=== PATIENT | female | born 1965 | race Caucasian/White ===

== ENCOUNTER 2017-06-30 23:33 | Emergency (ER) | payer MEDICAID, SELFPAY ==
[2017-06-30 23:34] VITALS: BP 124/67; PULSE 81; RESP 16; TEMP 36.8; O2SAT 97; BMI 27.1
--- NOTE | 2017-06-30 23:45 | EKG12_ITS ---
Test Reason : CP Blood Pressure : / mmHG Vent. Rate : 082 BPM Atrial Rate : 082 BPM P-R Int : 154 ms QRS Dur : 082 ms QT Int : 382 ms P-R-T Axes : 063 046 039 degrees QTc Int : 446 ms Normal sinus rhythm Normal ECG Confirmed by GARCIA DE LA TORRE MD ([id number]), department editor MELI MCCARTY ([id number]) on 07/04/2017 1:53:41 PM Referred By: ERIC Confirmed By:GARCIA DE LA TORRE MD
--- NOTE | 2017-06-30 23:45 | RAD_ITS ---
STUDY: X-RAY CHEST REASON FOR EXAM: Female, 52 years old. Chest pain TECHNIQUE: Frontal view COMPARISON: None. FINDINGS: The lungs are clear and expanded. There is no demonstrated pleural abnormality. Normal size heart. Normal mediastinum and janice. Normal visualized pulmonary arteries. Normal visualized aortic arch and descending thoracic aorta. Normal visualized thoracic spine. Normal visualized ribs, clavicles, and shoulders. There is no demonstrated abnormality of the visualized soft tissue structures of the upper abdomen. RAD/Chest 1 View (Portable) IMPRESSION: Normal x-ray examination of the chest. Electronically Signed: Valdo Solis MD at 0:08 EDT , Service support ,
[2017-06-30 23:53] VITALS: O2SAT 98
[2017-06-30] MEDS: 0.9% Normal Saline 1,000 ML 150 ML IV (23:58)
[2017-07-01 00:21] LABS: Absolute Lymphocyte Count 0.78 X10^3/ul (0.83-4.51); Absolute Neutrophil Count 6.8 X10^3/uL (2.0-7.7); Basophil# 0.01 X10^3/uL; Basophil% 0.1 % (0-1); Eosinophil# 0.06 X10^3/uL; Eosinophils% 0.7 % (0-5); Hematocrit 39.2 % (37-47); Hemoglobin 13.7 g/dl (12.0-15.0); Lymphocyte # 0.78 X10^3/ul (4.0); Lymphocyte % 9.3 % (19-41); Mean Corp Hgb Conc 34.9 g/gl (32-36); Mean Corpuscular Hgb 30.4 pg (27.0-32.0); Mean Corpuscular Volume 86.9 fL (81-99); Mean Platelet Vol. 11.3 fl (6.2-12.0); Monocyte# 0.74 X10^3/uL; Monocyte% 8.8 % (0-10); Neutrophil # 6.76 X10^3/uL (2.7-7.7); Neutrophil % 80.9 % (47-70); Platelet Count 176 K/mm3 (150-450); RBC Distribution Width CV 12.7 % (11.6-14.6); RBC Distribution Width SD 39.9 fl (35.1-43.9); Red Blood Count 4.51 M/mm3 (4.2-5.4); White Blood Count 8.4 K/mm3 (4.4-11.0)
[2017-07-01 00:29] LABS: POSITIVE COUNT NO; POSITIVE DIFFERENTIAL NO; POSITIVE MORPHOLOGY NO
[2017-07-01 00:32] LABS: AST(SGOT) 104 U/L (15-37); Alanine Aminotransfer ALT/SGPT 47 U/L (13-56); Albumin, Serum 3.9 g/dL (3.2-5.0); Alkaline Phosphatase 108 U/L (45-117); Anion Gap 8 (5-15); BUN 11 mg/dL (7-18); BUN/Creat Ratio 9.7 RATIO (10-20); Bilirubin, Direct 0.19 mg/dL (0.00-0.30); Calcium,Total 8.1 mg/dL (8.5-10.1); Chloride 109 mmol/L (98-107); Creatinine, Serum 1.13 mg/dL (0.55-1.02); EST Glomerular Filtration Rate 53 mL/min (>60); Est Glom Filt Rate - Afr Amer 65 mL/min (>60); Estimated Creatinine Clearance 45.01 ml/min; Globulin 3.4 g/dL (2.2-4.2); Glucose 154 mg/dL (74-106); Lipase 147 U/L (73-393); Potassium 3.6 mmol/L (3.5-5.1); Protein, Total 7.3 g/dL (6.4-8.2); Sodium Level 142 mmol/L (136-145)
--- NOTE | 2017-07-01 01:00 | ED.VISSUMM ---
- ER Visit Summary Date of Service: 07/01/17 Chief Complaint: Chest pain History of Present Illness: The patient is a 52 F who presents via EMS complaining of chest pain. Patient reports cold symptoms for the past 2 days with cough and congestion. She went to bed tonight and developed pain in the epigastrium that went into her back. She went to the bathroom and felt cold, clammy, sweaty, and vomited. Patient denies pain radiating up into the chest. She has no known coronary risk factors and no significant family history. She does have a family history of pancreatitis. Physical Examination: Vital signs are unremarkable. Patient sitting upright in bed no acute distress. Head neck examination is normal. Heart is regular rate and rhythm. Lung sounds are clear. Abdomen is soft with mild tenderness in epigastrium. She has hypoactive bowel sounds throughout. There is no guarding or rebound. Lower extremity examination was no calf tenderness or edema. She has strong distal pulses throughout. Test Results: Portable chest x-ray is unremarkable. EKG is sinus 82 with no sign of acute ischemia. CBC reveals normal overall white count with 80% neutrophil count is noted. Chemistry studies are significant for glucose of 154 and creatinine 1.13. LFTs and lipase are normal. Troponin is less than 0.02. Emergency Department Course and Treatment: Patient has a documented allergy to aspirin. She was given Zofran and fluids here. On repeat evaluation she has had no further symptoms or pain. At this time she is able tolerate p.o. without difficulty. I believe her symptoms are more gastric in nature as opposed to cardiac. Patient be discharged to home at this time. She is encouraged to return for any worsening symptoms or concerns. Treatment Plan: [] Disposition: Discharge Impression: 1. Epigastric pain and vomiting, improved 2. Vasovagal reaction This note was generated with [employer] dictation software. It may contain incorrect words, spelling, and punctuation that were not noted in review of the chart prior to signing ED Disposition - Plan for ED Patient: Chief Complaint: Chest Pain Referrals: Care Physician,No Primary [Primary Care Provider] -
--- NOTE | 2017-07-01 01:06 | ED.DEP ---
ED Disposition - Plan for ED Patient: Disposition: Home or Assisted Living Chief Complaint: Chest Pain Instructions: ED Epigastric Pain [facility], ED Near Syncope Vasovagal Referrals: Willis Orozco MD [STAFF PHYSICIAN] - 1-2 Weeks
[2017-07-01 01:17] VITALS: BP 122/72; PULSE 88; RESP 17; O2SAT 95
--- NOTE | 2017-07-01 01:17 | ED.RN ---
IV DC'ED, CATHETER INTACT, SMALL GAUZE DRESSING PLACED. DISCHARGE INSTRUCTIONS GIVEN TO AND REVIEWED WITH PATIENT, PATIENT DENIES QUESTIONS OR CONCERNS AND VOICES UNDERSTANDING OF DISCHARGE INSTRUCTIONS. PT AMBULATES OUT OF ROOM WITHOUT DIFFICULTY.
== END 2017-07-01 01:19 | disposition home or self-care (01) ==
PROVIDERS: Emergency Provider Emergency Medicine
DX: R10.13 Epigastric pain (principal); R11.10 Vomiting, unspecified; R55 Syncope and collapse
CPT/HCPCS: 71045; 80048; 80076; 83690; 84484; 85025; 93005; 96360; 99285; J7030; J2405

== ENCOUNTER 2017-08-06 00:28 | Emergency (ER) | payer MEDICAID, SELFPAY ==
[2017-08-06 00:29] VITALS: BP 153/83; PULSE 79; RESP 16; TEMP 36.5; O2SAT 97; BMI 26.4
--- NOTE | 2017-08-06 00:45 | ED.VISSUMM ---
- ER Visit Summary Date of Service: 08/06/17 Chief Complaint: Left arm pain and numbness History of Present Illness: The patient is a 52 F who complains of pain and numbness of the left upper extremity. She actually has symptoms in both hands but is worse on the left and she states that is what she wants to focus on tonight. Over the past 2 days she has had increased burning pain and numbness in the left hand and arm. She states this is the back and front of the hand and includes the thumb index long and ring fingers. She states the pain and numbness also involves her wrist and forearm up to proximal to the elbow. She states this is worse when she lays down and is relieved by standing up. She took Rowley without relief. She currently rates her pain as 10 out of 10. She denies any associated symptoms such as fevers chest pain shortness of breath. Of note she has seen [facility] for these symptoms and is scheduled for further outpatient testing. 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 Her compartments are soft there is no edema there is no rash Test Results: Not indicated Emergency Department Course and Treatment: Patient has a history of prior similar symptoms. The description of her pain does sound like neuropathic pain. The distribution does not fit specifically to radial ulnar median nerve distributions. I did advise that she should likely undergo further workup for neuropathy including possible studies such as EMG. She believes this is what she is scheduled for. I do feel she may benefit from anti-inflammatories. She was given a prescription for naproxen. She was advised to follow-up outpatient. She understands to return for new or worsening symptoms. She was discharged. Treatment Plan: [] Disposition: Discharge Impression: Left arm neuropathic pain This note was generated with [employer] dictation software. It may contain incorrect words, spelling, and punctuation that were not noted in review of the chart prior to signing ED Disposition - Plan for ED Patient: Chief Complaint: Other, Pain/Inj Referrals: Care Physician,No Primary [Primary Care Provider] -
--- NOTE | 2017-08-06 00:50 | ED.DCSUM_ITS ---
- ER Visit Summary Date of Service: 08/06/17 Chief Complaint: Left arm pain and numbness History of Present Illness: The patient is a 52 F who complains of pain and numbness of the left upper extremity. She actually has symptoms in both hands but is worse on the left and she states that is what she wants to focus on tonight. Over the past 2 days she has had increased burning pain and numbness in the left hand and arm. She states this is the back and front of the hand and includes the thumb index long and ring fingers. She states the pain and numbness also involves her wrist and forearm up to proximal to the elbow. She states this is worse when she lays down and is relieved by standing up. She took Indian without relief. She currently rates her pain as 10 out of 10. She denies any associated symptoms such as fevers chest pain shortness of breath. Of note she has seen [facility] for these symptoms and is scheduled for further outpatient testing. 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 Her compartments are soft there is no edema there is no rash Test Results: Not indicated Emergency Department Course and Treatment: Patient has a history of prior similar symptoms. The description of her pain does sound like neuropathic pain. The distribution does not fit specifically to radial ulnar median nerve distributions. I did advise that she should likely undergo further workup for neuropathy including possible studies such as EMG. She believes this is what she is scheduled for. I do feel she may benefit from anti-inflammatories. She was given a prescription for naproxen. She was advised to follow-up outpatient. She understands to return for new or worsening symptoms. She was discharged. Treatment Plan: [] Disposition: Discharge Impression: Left arm neuropathic pain This note was generated with OpenDrive dictation software. It may contain incorrect words, spelling, and punctuation that were not noted in review of the chart prior to signing ED Disposition - Plan for ED Patient: Chief Complaint: Other, Pain/Inj Referrals: Care Physician,No Primary [Primary Care Provider] -
--- NOTE | 2017-08-06 00:50 | ED.DEP ---
ED Disposition - Plan for ED Patient: Chief Complaint: Other, Pain/Inj Instructions: ED Neuropathy Peripheral Prescriptions: Naproxen [Naprosyn] 500 mg PO BID #20 tab Referrals: Care Physician,No Primary [Primary Care Provider] - Additional Instructions: Follow-up with your primary care physician and orthopedics.
[2017-08-06] MEDS: Naproxen 250 MG Tablet 500 MG PO (01:07)
== END 2017-08-06 01:09 | disposition home or self-care (01) ==
LOC: ED 00:59
PROVIDERS: Emergency Provider Emergency Medicine; Family Provider Family Medicine; PCP Family Medicine
DX: G56.92 Unspecified mononeuropathy of left upper limb (principal)
CPT/HCPCS: 99282

== ENCOUNTER → 2017-09-22 10:29 | Outpatient (CLI) | payer MEDICAID, SELFPAY ==
[2017-09-22 12:37] LABS: Anion Gap 9 (5-15); BUN 13 mg/dL (7-18); Calcium,Total 8.9 mg/dL (8.5-10.1); Chloride 105 mmol/L (98-107); Cholesterol 246 mg/dL (200); Creatinine, Serum 0.87 mg/dL (0.55-1.02); EST Glomerular Filtration Rate 72 mL/min (>60); Est Glom Filt Rate - Afr Amer 87 mL/min (>60); Glucose 83 mg/dL (74-106); High Density Lipoprotein 55 mg/dL; Potassium 4.1 mmol/L (3.5-5.1); Sodium Level 141 mmol/L (136-145); Triglycerides 195 mg/dL; Very Low Density Lipoprotein 39 mg/dL (5-40)
[2017-09-22 12:41] LABS: Vitamin D,25 Hydroxy 18.7 ng/mL (29.95-100.01)
== END ==
PROVIDERS: Family Provider Family Medicine; PCP Family Medicine; Visit Provider Family Medicine
DX: Z00.00 Encounter for general adult medical examination without abnormal findings (principal)
CPT/HCPCS: 36415; 80048; 80061; 82306

== ENCOUNTER → 2017-10-19 10:31 | Outpatient (CLI) | payer MEDICAID, SELFPAY ==
--- NOTE | 2017-10-19 10:34 | BI_ITS ---
MAMMOGRAPHY - BILATERAL SCREENING REASON FOR EXAM: Female, 52 years old. Routine annual screening examination. PERTINENT HISTORY: Non-contributory. TECHNIQUE: Digital bilateral breast grazyna (3D mammographic acquisition) in the CC and MLO projections. 2-D mediolateral oblique (MLO) and craniocaudad (CC) views of both breasts were obtained. CAD: Full Field Digital Mammography with Computer Added Detection was performed. COMPARISON: Comparison is made with prior outside examination dated April 11, 2016. FINDINGS: Breast Composition: The breasts are heterogeneously dense, which may obscure small masses. There are no dominant masses or suspicious calcifications. No other significant abnormalities are identified. There has been no significant change since the prior study. BI/SCREENING MAMM (CAD), BILAT IMPRESSION: Stable bilateral screening mammogram. Yearly follow-up mammogram recommended. (A) ASSESSMENT CATEGORY: BIRADS Category 1: Negative. A letter regarding these results will be sent to the patient by the facility within 30 days. Approximately 10% of breast cancers are not detected by mammography. A normal mammogram should not delay biopsy of a clinically suspicious abnormality. [id number] Electronically Signed: Hadley Munroe MD at 14:07 EDT Tel [phone], Service support ,
== END ==
PROVIDERS: Family Provider Family Medicine; PCP Family Medicine; Visit Provider Family Medicine
DX: Z00.00 Encounter for general adult medical examination without abnormal findings (principal); Z12.31 Encounter for screening mammogram for malignant neoplasm of breast
CPT/HCPCS: 77063; 77067

== ENCOUNTER → 2017-11-09 13:45 | Outpatient (CLI) | payer MEDICAID, SELFPAY | PROVIDERS: Family Provider Family Medicine; PCP Family Medicine; Visit Provider Family Medicine | DX: M75.51 Bursitis of right shoulder (principal) | CPT/HCPCS: 73030 ==

== ENCOUNTER → 2017-11-16 10:12 | Outpatient (CLI) | payer MEDICAID, SELFPAY | PROVIDERS: Family Provider Family Medicine; PCP Family Medicine; Visit Provider Family Medicine | DX: Z00.00 Encounter for general adult medical examination without abnormal findings (principal) | CPT/HCPCS: 77080 ==

== ENCOUNTER 2017-12-06 11:00 | Outpatient (RCR) | payer MEDICAID, SELFPAY ==
--- NOTE | 2017-11-13 09:24 | HP.PTEVAL_ITS ---
Patient's Visit Information BALJIT DIETZ is a 52 year old F referred to Physical Therapy by Willis Orozco with a diagnosis of R shoulder pain. Date of Evaluation: 11/13/17 Physical Therapist: DEBBI LimT, OC - Visit Plan Frequency: 3x /Week Duration: 4-6 Weeks Plan: 3x/week for 3-6 for: 1. c/s ret and ext program and monitor effects on R UE elevation, c/s ROM and shoulder pain. 2. Activity modification to R shoulder posturally, positionally. 3. RC and scap/postural strength per tolerance to r scap/c/s. 4. TENS and ice to R shoulder as needed. STM to R scap. - Subjective Subjective: Has had numbness in hands for long time years and then it went dormant. Last May, started working at [employer] and acitvated that sleeping dog. Arms and hands started going numb and went to orthopod. EMG showed mild to moderate cTS in R and none in L. Scheduled for an MRI for that. In the meantime saw Ernesto for R shoulder x ray due to pain adn hard time lifting it and showed calcification. Spasms and knots in scapular muscle. This has been going on for three weeks and had insidious onset. Was doing repetitious stuff at [employer] and reaching up quite a bit. May have done it reaching at that time. This was unreported. 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 Now hard to do hair and any twisting of shoulder. Sleep is OK for the most part. Not still working as she cannot find a job. Doing hair and getting dressed at home sometimes bothers R shoulder. Staffing partners wont place her until testing is done for shoulder. [facility] was looking into her neck but due to [facility], they cannot provide services, patient will wait for the to trasfer her to someone else. CT braces have helped arm numbness. - Pain R scapular/shoulder. Pain Intensity (Out of 10): 5 Pain Intensity Range: 0, 6 - Objective Posture is forward head and slightly protracted scapula. reflexes 2/3 bis and tri B. Sensation WNL UE except R 2/3 digit. c/s AROM ext 45 degrees with mild discomfort, rotation painful at end range R rot but 65 degrees B, SB WFL. Max tenderness to entire R upper quarter neck and scap and into dletoid and R supraspinatus area. Strength R UE weaker than L. wrist flexion 3 r and 4- L. Thumb 3+ B, wrist ext 3+ R and 4- L. Elbow flexion adn ext 3+ R and 4- L. Shoulder flexion painful and 3+ R and no pain 4-L. repeated ret improves mption R shoulder, repeated ext improves movement R shouldr, flexion:NE more soreness laterally. + R HK, + R neer, - ext rotation lag test. AROM R UE is painful to elevate and IR at end ranges but full aROM. + c/s comp test R scapular pain. - Goals Goal 1:: Full aROM R UE without pain Goal Time Frame: 4-6 Weeks Goal 2:: Pt get dressed adn do hair without noticing R shoulder. Goal Time Frame: 4-6 Weeks Goal 3:: pt feel like she can return to working without interruption of R shoulder. Goal Time Frame: 4-6 Weeks Goal 4:: Pt feel 75% back to normal R shoulder. Goal Time Frame: 4-6 Weeks - Rehabilitation Potential Physical Therapy Diagnosis: R shoulder pain c/s radiculopathy vs. shoulder impingement/bursitis. Many cmorbidities including CTS confounding situation. Rehabilitation Potential: Fair - Anticipated Interventions Patient/Client Instruction: Educate patient on: Condition, Plan of Care For the Purpose of:: To decrease pain, To decrease swelling/inflammation Therapeutic Exercise to Include: Strength training, Passive ROM, Active ROM, Scapular Strength/Stabilization For the Purpose of:: To decrease pain, To decrease swelling/inflammation, To increase ROM, To improve nutrient delivery to tissue, To improve ability of physical actions for home/community/work/leisure Manual Therapy Techniques to Include: Soft tissue mobilization For the Purpose of:: To decrease pain, To improve nutrient delivery to tissue TENS: Yes Cryotherapy (ice pack, ice massage): Yes For the Purpose of:: To decrease pain, To decrease swelling/inflammation Thank you for the opportunity to evaluate your patient. For Medicare and Medicare HMO plans, please review the plan of care and approve it. It will need to be FAXED BACK to us at [phone] for Medicare purposes. Please let me know if there are questions or concerns regarding this plan of care. Physician Signature: Date:
--- NOTE | 2017-12-06 11:55 | HP.PTDCSUM ---
HP - PT D/C Summary It has been my pleasure to treat BALJIT DIETZ under orders from Willis Orozco, for the diagnosis of R shoulder pain for a total of 10 visit(s). Discharge Date: Please see the following information for a summary of their discharge status. - Subjective Subjective: Daily 09/26 pain R lateral shoulder and shoulder blade. No f/u wioth doctor scheduled but will schedule it after today. Sleep is not great pillow helps with pain but hard to sleep that way. Activities at home are modified due to pain. Has to bend over to wash hair. Stilla voids reaching into cupboards. - Pain R scapular/shoulder. Pain Intensity (Out of 10): 6 - Overall Improvement % Improvement: 0 - Objective Objective/Function: AROM very limited in R elevation to 80 degrees before pain is very limiting. ext rotation and IR hurt at end range. Strength is 4- ext rotation and 4/5 int rotation, 3/5 elevation with pain laterally at shoulder. Very tender to palpation over supraspinatus and A-C joint. c/s AROM WFL with only slight discomfort end of B rotation, - c/s compression test. OVERALL NOT IMPROVING DESPITE WORKING HARD. - Goals Goal 1:: Full aROM R UE without pain Goal Progress: Not Progressing Goal 2:: Pt get dressed adn do hair without noticing R shoulder. Goal Progress: Not Progressing Goal 3:: pt feel like she can return to working without interruption of R shoulder. Goal Progress: Not Progressing Goal 4:: Pt feel 75% back to normal R shoulder. Goal Progress: Not Progressing - Plan Plan: d/c RECOMMEND BACK TO DOCTOR FOR NEXT STEP. - D/C Information Discharge Comments: rECOMMEND PATIENT RETURN TO DOCTOR FOR NEXT MEDICALS TEP SHE IS NOT IMPROVING WITH THIS TRATMENT. PT TO CALL TO SCHEDULE. If there are questions or concerns regarding this patient's physical therapy, please feel free to call me at [phone]. Thank you for the referral of this patient. Sincerely, Rip Marie, DPT, OC
== END 2017-12-06 19:00 | disposition home or self-care (01) ==
LOC: PT 11:00
PROVIDERS: Family Provider Family Medicine; PCP Family Medicine; Visit Provider Family Medicine
DX: M25.511 Pain in right shoulder (principal)
CPT/HCPCS: 97014; 97110; 97140; 97162; 97530; G0283

== ENCOUNTER → 2017-12-23 07:53 | Outpatient (CLI) | payer MEDICAID, SELFPAY ==
--- NOTE | 2017-12-23 08:30 | MRI_ITS ---
STUDY: MRI CERVICAL SPINE WITHOUT CONTRAST REASON FOR EXAM: Female, 52 years old. Left arm numbness and tingling. TECHNIQUE: Standardized fat and water weighted pulse sequences were obtained in the sagittal and axial planes. COMPARISON: None FINDINGS: Normal foramen magnum and brainstem-cervical cord junction. Normal craniovertebral junction. Normal anterior atlantoaxial articulation. Normal odontoid process. Normal cervical lordosis. Normal vertebral bodies and posterior osseous elements. C2-3: Normal endplates. Normal disc height, signal and morphology. Normal central canal and intervertebral neural foramina. C3-4: Normal endplates. Normal disc height, signal and morphology. Normal central canal and intervertebral neural foramina. Mild facet spurring. C4-5: Normal endplates. Normal disc height, signal and morphology. Normal central canal and intervertebral neural foramina. Mild facet spurring. C5-6: Disc bulge. Anterior spurring. Facet spurring. Normal central canal and intervertebral neural foramina. C6-7: Disc bulge with central left paracentral disc protrusion narrowing the left lateral recess, series 5 images 9/30 and 10/30. Normal central canal and intervertebral neural foramina. C7-T1: Normal endplates. Normal disc height, signal and morphology. Normal central canal and intervertebral neural foramina. Normal cervical cord. Normal visualized soft tissue structures. MRI/Spine Cervical (Routine) IMPRESSION: Disc herniation at C6-7 centrally and toward the left. Electronically Signed: Quinton Turk MD at 15:02 EDT , Service support ,
--- NOTE | 2017-12-23 09:15 | MRI_ITS ---
STUDY: MRI RIGHT SHOULDER REASON FOR EXAM: Female, 52 years old. Right shoulder pain status post injury TECHNIQUE: Standardized fat and water weighted pulse sequences were obtained in all 3 orthogonal planes. COMPARISON: None. FINDINGS: There is tendon thickening with intratendinous decreased signal on all pulse sequences of the supraspinatus tendon consistent with a calcific tendinitis. Normal infraspinatus tendon. Normal subscapularis tendon. Normal teres minor tendon. Normal supraspinatus muscle. Normal infraspinatus muscle. Normal subscapularis muscle. Normal teres minor muscle. There is a small volume joint effusion of the glenohumeral joint. Normal humeral head and visualized proximal humerus. Normal biceps labral complex. Normal intracapsular long biceps tendon. Tear of the superior labrum adjacent to the biceps anchor, series 4 image 13/20. Normal capsulo- ligamentous complex. Normal rotator interval. There is mild osteoarthritis of the acromioclavicular articulation. There is a Type II morphology (curved) acromion, with a neutral orientation. There is no subacromial-subdeltoid bursal fluid. Normal visualized coracohumeral and coracoacromial ligaments. Normal quadrilateral space. Normal axillary space. Normal deltoid muscle. Normal trapezius muscle. MRI/Upper Ext Joint Only(Routine) IMPRESSION: Calcific tendinopathy of the supraspinatus. No full-thickness rotator cuff tear. SLAP lesion and tear of the superior labrum. Electronically Signed: Quinton Turk MD at 15:06 EDT , Service support ,
== END ==
PROVIDERS: Family Provider Family Medicine; PCP Family Medicine; Referring Provider Family Medicine; Visit Provider Family Medicine
DX: S43.431A Superior glenoid labrum lesion of right shoulder, initial encounter (principal); X58.XXXA Exposure to other specified factors, initial encounter; M75.31 Calcific tendinitis of right shoulder; M50.222 Other cervical disc displacement at C5-C6 level; R20.2 Paresthesia of skin
CPT/HCPCS: 72141; 73221

== ENCOUNTER 2018-01-31 17:00 | Outpatient (RCR) | payer MEDICAID, SELFPAY ==
--- NOTE | 2018-01-12 13:03 | HP.PTEVAL_ITS ---
Patient's Visit Information BALJIT DIETZ is a 52 year old F referred to Physical Therapy by Maddi Dunn DO with a diagnosis of RIGHT SUPRASPINATOUS CALCIFICATION,SLAP TEAR. Date of Evaluation: 01/12/18 Physical Therapist: Robert Crystal, PT, - Visit Plan Frequency: 2x /Week Duration: 4 Weeks Plan: DISCUSSED WITH PATIENT IONTO WITH ACETIC ACID IS NOT COVERED UNDER INSURANCE. PATIENT HAS SLAP TEAR MRI AND C6-7 HNP PLAN FOR CONSULT FOR CERVICAL Jan 16. PT INTERVENTION MAINLY US/ESTIM FOR JUAN CARRENO HAS CONSUTLT - Subjective Subjective: This 52 y/o female presents to physical therapy with right shoulder calcific tendonitis ,SLAP tear. Patient has had prior PT which made symptoms worse with exercies. Patient had MRI of left shoulder showed calcific tendonitis SLAP tear. Patient also had MRI cervical showed cervical HNP C6-7. Plan to see surgeon Jan 16 for consult for cervical spine. Dr Reyes wants cervical consult first and wait for right shoulder which may need arthroscopic left shoulder. Right shoulder pain located grossly anterior shoulder and blade. Symptoms worse with activity above 90 degrees ,self hygine,ADLS' and housework chores.Symptoms better with ice. Patient c/o parathesia hands. Patient symptoms affects sleeping. Pain in right shoulder and radicular symptoms left UE affect QOL and ADL'S. SOCIAL: single. VOCATION: unemployed - Pain Right Shoulder Pain Intensity (Out of 10): 7 Pain Intensity Range: 10 - Objective POSTURE: mild foward posture. PALAPTION: tender AC. NEURO: c/o parathesia /tingling hand,reflexes C5-6-7 2/3. AROM: shoulder flexion 90 degrees ,abduction 70 degrres pain with OP pain. PROM: shoulder flexion 120 pain,abd 110 pain ,ER 90 degrees pain. FUNCTIONAL : test unable. MMT: RRTC 3+/5 pain ,deltoid 3/5 pain - Special Tests R Shoulder Drop Sign - IS Test: Positive R Shoulder Empty Can - SS: Positive R Shoulder Belly Press - SupScap: Positive R Shoulder Neer - Impingement: Positive R Shoulder Ambriz Dontrell - Impingement: Positive R Shoulder Speeds Test - Labrum/Biceps: Positive R Shoulder O'Briens - SLAP/A-C: Positive R Shoulder Shrug Sign - OA/Adhesive Capsulitis: Positive - Goals Goal 1:: Independant with HEP Goal Time Frame: 2-4 Weeks Goal 2:: Independant with posture for ADL'S Goal Time Frame: 2-4 Weeks Goal 3:: Decrease left shoulder pain by 30% or greater to improve function Goal Time Frame: 2-4 Weeks Goal 4:: Patient to inprove AROM shoulder flexion/abd 100 degrees or greater to improve function. Goal Time Frame: 2-4 Weeks Goal 5:: Patient to improve ability with ADL'S and housework chores with less pain to improve QOL Goal Time Frame: 2-4 Weeks - Rehabilitation Potential Physical Therapy Diagnosis: This patient has right shoulder pain with pain with ROM ,weakness with pain impairs ability to muse arm with ADL'S. Patient had MRI shoed slap tear ,DR recommend surgery but recommeded to see cervical surgeon due to MRI showed HNP C6-7. Rehabilitation Potential: Fair - Anticipated Interventions Patient/Client Instruction: Educate patient on: Condition, Plan of Care For the Purpose of:: To decrease pain, To increase ROM, To improve muscle performance and motor function, To improve ability to perform ADL's, To increase tolerance to activity/condition/position, To improve performance and indep endence with ADL's, To improve ability of physical actions for home/community/work/leisure, To improve health of tissue, To decrease soft tissue restriction, To increase flexibility/ROM, To improve health and function, To improve ability to perform tasks related to life management Therapeutic Exercise to Include: Postural training, Passive ROM For the Purpose of:: To increase ROM, To improve health of tissue, To decrease soft tissue restriction, To increase flexibility/ROM TENS: Yes IF ES: Yes Cryotherapy (ice pack, ice massage): Yes Thermo therapy (hot pack): Yes Ultrasound (thermal/non thermal): Yes For the Purpose of:: To decrease pain, To decrease swelling/inflammation, To increase ROM, To improve nutrient delivery to tissue, To increase oxygenation perfusion, To improve health of tissue, To decrease soft tissue restriction Thank you for the opportunity to evaluate your patient. For Medicare and Medicare HMO plans, please review the plan of care and approve it. It will need to be FAXED BACK to us at [phone] for Medicare purposes. Please let me know if there are questions or concerns regarding this plan of care. Physician Signature: Date:
--- NOTE | 2018-02-01 11:02 | HP.PTDCSUM ---
HP - PT D/C Summary It has been my pleasure to treat BALJIT DIETZ under orders from Maddi Dunn DO, for the diagnosis of RIGHT SUPRASPINATOUS CALCIFICATION,SLAP TEAR for a total of 6 visit(s). Discharge Date: 02/01/18 Please see the following information for a summary of their discharge status. - Subjective Subjective: Pt is having surgery February 21. Pt taking pain meds and cream for pain - Pain Right Shoulder Pain Intensity (Out of 10): 5 - Overall Improvement % Improvement: 25 - Objective Objective/Function: ROM AND STENGTH IMPAIRED PLAN FOR SURGERY - Goals Goal 1:: Independant with HEP Goal Progress: Progressing Goal 2:: Independant with posture for ADL'S Goal Progress: Not Progressing Goal 3:: Decrease left shoulder pain by 30% or greater to improve function Goal Progress: Progressing Goal 4:: Patient to inprove AROM shoulder flexion/abd 100 degrees or greater to improve function. Goal 5:: Patient to improve ability with ADL'S and housework chores with less pain to improve QOL Goal Progress: Progressing - Plan Plan: D/C SCHEDULED FOR SURGERY - D/C Information Discharge Comments: d/c scheduled for surgery If there are questions or concerns regarding this patient's physical therapy, please feel free to call me at [phone]. Thank you for the referral of this patient. Sincerely, Robert Crystal, PT,
== END 2018-01-31 19:00 | disposition home or self-care (01) ==
LOC: PT 17:00
PROVIDERS: Family Provider Family Medicine; PCP Family Medicine; Visit Provider Orthopaedic Surgery
DX: M75.31 Calcific tendinitis of right shoulder (principal); S43.431D Superior glenoid labrum lesion of right shoulder, subsequent encounter
CPT/HCPCS: 97014; 97035; 97162; G0283

== ENCOUNTER 2018-02-21 05:31 | Day surgery (SDC) | payer MEDICAID, SELFPAY ==
[2018-02-21 06:06] VITALS: BP 140/75; PULSE 70; RESP 14; TEMP 37.1; O2SAT 93; BMI 27.1
--- NOTE | 2018-02-21 07:30 | TESH_PTH ---
PATIENT: BALJIT DIETZ LOC: [facility] – [place], [place] U#:[id number] AGE/SX: 52/F ROOM: RE02/21/[address]: Dr. Maddi Dunn DO : 1965 BED: DIS: 02/21/2018 SPEC #: [id number] RECD: 02/21/18 10:58 STATUS: CHRIS ROSENDO #: [id number] SAUD: 02/21/18 07:[address]: Maddi Dunn DEPT: SURGICAL PATHOLOGY RECD BY: Aleks Torre ENTERED: 02/21/18 11:14 SP TYPE: TENDON OTHR DR: Dr. Willis Orozco MD Tissues: Tendon and tendon sheath, NOS Procedures: Surgery Specimen Level III HEADER OPERATION: Arthroscopy shoulder, subacromial decompression/acromioplasty PRE-OP DIAGNOSIS: Calcific tendonitis of right shoulder, superior labrum [id number] tear of right shoulder TISSUE SUBMITTED: Right bicep tendon MICROSCOPIC DIAGNOSIS Right bicep tendon: A piece of dense fibroconnective tissue with reactive changes. SHARMAINE:sergio 02/22/18 MICROSCOPIC DESCRIPTION Slides are reviewed. GROSS DESCRIPTION Received in fixative is one container labeled with the patient's name and designated bicep tendon right. The specimen consists of a piece of mccarty, indurated tissue measuring 3 x 0.7 x 0.3 cm. The specimen is serially sectioned and submitted entirely in one cassette. / SHARMAINE:sergio 02/21/18 TC:5 CPT: 57848
[2018-02-21] MEDS: Cefazolin 2 GM in 0.9% Normal Saline 100 ML IV (07:31)
--- NOTE | 2018-02-21 07:36 | DCINST_ITS ---
Discharge Diet: No Restrictions - sling except to do pendulums, no active flexion of elbow, may move wrist/hand as tolerated; remove dressings in 4 days and apply bandaids to incision sites, may get incision wet after 4 days, follow upin 2 weeks for suture removal/initiation of PT, call with concerns Discharge Activity: May Not Drive May shower in (days): 1 Ice area for (Minutes): 20 - Every hour while awake. Weight Bearing Status: Weight bearing as tolerated Keep extremity elevated above heart level: Operative Extremity Call your doctor if your incision/area has: Continuous Slow Oozing, Sudden Increased Bleeding, Increased Pain/ Swelling, Increased Redness, Foul Smelling Discharge Call your doctor if you observe: Fever of 101 or Higher, Coldness, Increased Pain, Numbness or Tingling, Change in Color, Calf discomfort Allergies/Adverse Reactions: Allergies amoxicillin trihydrate [From Augmentin] Allergy (Verified 02/20/18 10:54) Hives latex Allergy (Verified 01/11/18 10:11) Anaphylaxis potassium clavulanate [From Augmentin] Allergy (Verified 02/20/18 10:54) Hives aspirin [ASA] Adverse Reaction (Verified 01/11/18 10:11) Other seizures PLASTIC Allergy (Uncoded 02/14/18 15:09) Rash BLISTERS Medications to take at Discharge Cholecalciferol (Vitamin D3) [Vitamin D3] 2,000 unit PO DAILY 02/14/18 Naproxen [Naprosyn] 500 mg PO PRN PRN 02/14/18 Hydrocodone Bitart/Apap 5-325 [[place] 5MG-325MG] 1 - 2 tablet PO Q6H PRN PRN 5 Days #40 tablet 02/21/18 The following prescriptions were given: Hydrocodone Bitart/Apap 5-325 [[place] 5MG-325MG] 1 - 2 tablet PO Q6H PRN PRN 5 Days #40 tablet PRN Reason: Pain Primary Care Physician: Willis Orozco MD [Primary Care Provider] - Test Results: Test results from this visit will be discussed in further detail at your follow- up appointment, if applicable. Please Follow Up With: Maddi Dunn DO - [phone]
--- NOTE | 2018-02-21 07:36 | PCM.OPRPT ---
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 MRI confirms calcific tendinitis as well as a SLAP tear. And some biceps tendinosis. Risks benefits and alternatives surgery discussed with patient. Risks include but not limited to blood loss, blood clot, infection, neurovascular, failure procedure, loss of life and loss of limb need for revision surgery. Patient is aware like proceed with right shoulder arthroscopy repair is indicated. Operative note Patient seen and examined preoperative holding area. Right shoulder was marked. Patient brought to the operating placed supine on the operating table. Signing, anesthesia, antibiotics were administered. All bony prominences were well-padded SCDs placed on her bilateral lower extremity. The patient was placed in beachchair positioning residential through we did recheck her blood pressure was a little bit low we did treated in the months it was stable and then completed her sitting up and normal beachchair positioning. The right arm was then prepped and draped in usual sterile fashion. We marked out a bony landmarks for portal placement. Timeout was performed. We then insufflated the joint from the posterior portal. We then had good return flow then created our posterior portal with 11 blade. Begin our diagnostic arthroscopy. There was some fraying of the both of the anterior labrum at the biceps labral junction as well as posterior labrum. We created an anterior portal under direct visualization. The subscap was intact. The rotator cuff was intact. Biceps anchor because of the instability and the tearing we did release at its origin and then we carefully resected any and loose labral pieces to a stable rim. We also gently debrided the posterior labrum which had some fraying as well. There are no loose bodies in the inferior recess. We then moved the subacromial space. Patient had extensive bursitis. We created a lateral portal under direct visualization. We resected back the bursa with combination of a shaver and a burner. Able to palpate with the probe the calcium deposit at the insertion of the supraspinatus was quite large piece which was removed in its entirety doing so made the the defect in the rotator cuff we did place a swivel lock laterally using fiber tape in standard technique. We also can perform an acromioplasty as she had a jagged edged to the anterolateral aspect of her acromion. We shaved and irrigated the shoulder and ensuring that there is no calcium that was floating or any other bursa that was left we irrigated the shoulder with copious nonsterile saline and moved her open biceps tenodesis piece. We prepped the area marked out our incision just inferior to the insertion of the pec insertion. That extended the incision about a centimeter and half to 2 cm. We then waited the allotted time use a 15 blade to cut the skin dissect down tenotomies of the biceps tendon the biceps tendon was brought out of the incision truncated and sent to pathology for further evaluation. We then whipstitched the end of the biceps tendon placed about the pec button in standard technique at the end. We then used an ablator to ablate the periosteum at the site of our biceps tendon tenodesis. We drilled using the Arthrex pec button kit we drilled unicortical he initially placed the button through and flipped the button intramedullary and then oversewed the biceps tendon down to the periosteum. We irrigated the incision with copious muscle sterile saline. The incision was closed with 3-0 Vicryl in a running 4-0 Monocryl and the portals were closed with interrupted 4-0 nylon. Sterile dressings were applied patient was placed in a sling. Patient tolerated tolerated procedure well no comp occasions transferred to recovery room in stable condition. Next Postoperative note Pendulums No flexion active at the elbow may use wrist and hand as tolerated next Follow-up in 2 weeks Hospital pharmacy has prescriptions Call with increased pain numbness tingling further issues arise Dragon disclaimer this note was generated with [employer] dictation software. It may contain incorrect words, spelling, and punctuation that were not noted in checking the note before signing.
[2018-02-21] MEDS: Mupirocin Ointment 22gm Tube 1 APPLIC (09:03)
[2018-02-21 09:34] VITALS: BP 131/91; BP 140/75; PULSE 78; RESP 15; TEMP 36.3; O2SAT 98
[2018-02-21 09:45] VITALS: BP 140/75; BP 151/74; PULSE 71; RESP 16; O2SAT 98
[2018-02-21 09:51] VITALS: BP 140/75; BP 141/77; PULSE 67; RESP 16; O2SAT 100
[2018-02-21] MEDS: HYDROcodone Bitartrate/Apap 5/325 Tablet PO (11:40)
[2018-02-21 11:54] VITALS: BP 104/54; BP 140/75; PULSE 65; RESP 16; TEMP 36.9; O2SAT 98
== END 2018-02-21 11:54 | disposition home or self-care (01) ==
LOC: SDC 05:32 → AC 05:32
PROVIDERS: Family Provider Family Medicine; PCP Family Medicine; Referring Provider Orthopaedic Surgery; Visit Provider Orthopaedic Surgery
PROC: (CPT 29827; principal; 2018-02-21 07:10)
DX: M75.31 Calcific tendinitis of right shoulder (principal); S43.431A Superior glenoid labrum lesion of right shoulder, initial encounter; Z79.1 Long term (current) use of non-steroidal anti-inflammatories (NSAID); Z85.828 Personal history of other malignant neoplasm of skin; X58.XXXA Exposure to other specified factors, initial encounter; Y93.9 Activity, unspecified; Y92.9 Unspecified place or not applicable; Y99.9 Unspecified external cause status
CPT/HCPCS: 23130; 23412; 23430; 29826; 29827; 88304; J7120; J2405

== ENCOUNTER 2018-07-11 11:30 | Outpatient (RCR) | payer MEDICAID, SELFPAY ==
[2018-03-06 10:46] VITALS: BMI 27.1
--- NOTE | 2018-03-22 14:00 | HP.PTEVAL_ITS ---
Patient's Visit Information BALJIT DIETZ is a 52 year old F referred to Physical Therapy by Maddi Dunn DO with a diagnosis of RIGHT SHOULDER RTC REPAIR ,BICEPS TENODESIS. Date of Evaluation: 03/21/18 Physical Therapist: Robert Crystal PT, Cert MDT, [facility] - Visit Plan Frequency: 2x /Week Duration: 3 Months Plan: PATIENT UNDERWENT S/P RTC REPAIR AND OPEN BICEPS TENDONESIS ON FEB 21. S/P 4 WEEKS 03/21/2018. SLING 6 WEEKS,NO ACTIVE ISOLATION BICEPS 8 WEEKS ,ER 40 DEGREES 4-6 WEEKS. SEE GUIDLINES WITH PROGRESSION WITH RTC REPAIR,BICEPS TENDONESIS PHASES 1-3 - Subjective Findings: This 52 y/o fe,dee presents to physical therapy with right shoulder RTC repair ,open biceps tenodesis on Feb at [facility] . Patient was d/c DOS with abductor sling , Patient seen DR. Reyes on Mar 06 , follow up Mar. Patient had right shoulder pain for several months. Tried PT twice which didnt help ,made symptoms worse. Patient denies parathesia/tingling. Inscion ,looking good. Pain affects sleeping . Patient surgery affects QOL and function/housework tasks.PRECAUTIONS: sling for 6weeks ,no active elevation isolation biceps 8 weeks,limit ER 40 degrees 4-6weeks. SOCAIL:single. HOOBIES: jewerly. VOCATION: unemployed - Pain Right Shoulder Pain Intensity (Out of 10): 2 Pain Intensity Range: 10 - Objective POSTURE: rounded shoulders head foward. NEURO: denies parathesia/tingling. SKIN: inscion well approximate,anterior biceps. PROM:shoulder supine flexion 120 degrees,abduction in scapation 110 degrees,ER 40 degreeselbow flexion/extension PROM WFL. MMT: NT shoulder /biceps - Goals Goal 1:: Independant with HEP Goal Time Frame: 12-16 Weeks Goal 2:: Improve AROM shoulder flexion 150 degrees,abdunction in scapation 145 degrees,ER 80 ,IR L4 to improve function Goal Time Frame: 12-16 Weeks Goal 3:: Improve strength of RTC 4-/5 and deltoid 3+/5 to improve function and ADL'S Goal Time Frame: 12-16 Weeks Goal 4:: Patient be able to perform ADL'S and housework tasks above 90 degrees with min limiations Goal Time Frame: 12-16 Weeks Goal 5:: Patient to improve QUICK DASH HARIKA by 10 points or greater to improve QOL. Goal Time Frame: 12-16 Weeks - Rehabilitation Potential Physical Therapy Diagnosis: This 52 y/o male presnents to physical therapy with right shoulder arthrospy,subacromial decompression/acromioplasty,calcific teninitis,RTC repair open biceps,tenodesis with mild pain ,ROM and strength deficits which impairs ADL'S Rehabilitation Potential: Good - Anticipated Interventions Patient/Client Instruction: Educate patient on: Condition, Plan of Care For the Purpose of:: To decrease pain, To increase ROM, To improve muscle performance and motor function, To improve ability to perform ADL's, To increase tolerance to activity/condition/position, To improve performance and independence with ADL's, To improve health of tissue, To decrease soft tissue restriction, To increase flexibility/ROM, To assume or resume ADL's, To improve tolerance to ADL's Therapeutic Exercise to Include: Strength training, Postural training, Flexibilty training, Passive ROM, Active ROM Comment: SEE GUIDELINES WITH PROGRESSION RTC REPAIR AND BICEPS TENDONESIS For the Purpose of:: To decrease pain, To increase ROM, To improve nutrient delivery to tissue, To increase oxygenation perfusion, To improve muscle performance and motor function, To improve ability to perform ADL's, To improve performance and independence with ADL's, To decrease soft tissue restriction, To increase flexibility/ROM, To assume or resume ADL's, To improve ability to perform tasks related to life management, To improve tolerance to ADL's Manual Therapy Techniques to Include: Mobilization, Passive ROM Comment: shoulder G-H,SCAPULAR For the Purpose of:: To decrease pain, To increase ROM, To improve muscle performance and motor function, To improve ability to perform ADL's, To increase tolerance to activity/condition/position, To improve performance and independence with ADL's, To improve ability of physical actions for home/community/work/leisure, To improve health of tissue, To decrease soft tissue restriction, To increase flexibility/ROM, To assume or resume ADL's, To improve ability to perform tasks related to life management, To improve tolerance to ADL's Cryotherapy (ice pack, ice massage): Yes Thermo therapy (hot pack): Yes For the Purpose of:: To decrease pain, To increase ROM, To improve nutrient delivery to tissue, To increase oxygenation perfusion, To improve health of tissue, To decrease soft tissue restriction Thank you for the opportunity to evaluate your patient. For Medicare and Medicare HMO plans, please review the plan of care and approve it. It will need to be FAXED BACK to us at [phone] for Medicare purposes. For Medicare only, by signing this I certify the plan of care. Please let me know if there are questions or concerns regarding this plan of care. Physician Signature: Date:
--- NOTE | 2018-07-11 12:08 | HP.PTDCSUM ---
HP - PT D/C Summary It has been my pleasure to treat BALJIT DIETZ under orders from Maddi Dunn DO, for the diagnosis of RIGHT SHOULDER RTC REPAIR ,BICEPS TENODESIS for a total of 26 visit(s). Discharge Date: Please see the following information for a summary of their discharge status. - Subjective Subjective: DOING WELL 100%. RETURN TO ALL ADL'S. MD HAPPY WITH PROGRESS - Pain Right Shoulder Pain Intensity (Out of 10): 0 - Overall Improvement % Improvement: 100 - Objective Objective/Function: POSTURE: WFL. PALPATION: unremarkable. AROM: flexion 160 defgrres,abd 155 ,ER 90 ,IR reach behind back. MMT: RTC 4/5 except supraspinatous 4-/5,deltoid 4-/5 - Goals Goal 1:: Independant with HEP Goal Progress: Goal Met Goal 2:: Improve AROM shoulder flexion 150 degrees,abdunction in scapation 145 degrees,ER 80 ,IR L4 to improve function Goal Progress: Goal Met Goal 3:: Improve strength of RTC 4-/5 and deltoid 3+/5 to improve function and ADL'S Goal Progress: Goal Met Goal 4:: Patient be able to perform ADL'S and housework tasks above 90 degrees with min limiations Goal Progress: Goal Met Goal 5:: Patient to improve QUICK DASH HARIKA by 10 points or greater to improve QOL. Goal Progress: Goal Met - Plan Plan: D/C TO HEP - D/C Information If there are questions or concerns regarding this patient's physical therapy, please feel free to call me at [phone]. Thank you for the referral of this patient. Sincerely, Robert Crystal, PT, Cert MDT, [facility]
== END 2018-07-11 16:52 | disposition home or self-care (01) ==
LOC: PT 11:30
PROVIDERS: Family Provider Family Medicine; PCP Family Medicine; Referring Provider Orthopaedic Surgery; Visit Provider Orthopaedic Surgery
DX: Z98.890 Other specified postprocedural states (principal); M75.21 Bicipital tendinitis, right shoulder
CPT/HCPCS: 97110; 97140; 97162

== ENCOUNTER → 2018-11-29 10:51 | Outpatient (CLI) | payer MEDICAID, SELFPAY ==
[2018-07-05 10:49] VITALS: BMI 27.1
[2018-11-29 12:59] LABS: Anion Gap 3 (5-15); BUN 13 mg/dL (7-18); BUN/Creat Ratio 16.4 RATIO (10-20); Chloride 107 mmol/L (98-107); Cholesterol 230 mg/dL (200); Creatinine, Serum 0.79 mg/dL (0.55-1.02); EST Glomerular Filtration Rate 80 mL/min (>60); Est Glom Filt Rate - Afr Amer 97 mL/min (>60); Glucose 88 mg/dL (74-106); High Density Lipoprotein 49 mg/dL; Potassium 4.1 mmol/L (3.5-5.1); Sodium Level 140 mmol/L (136-145); Triglycerides 173 mg/dL; Very Low Density Lipoprotein 35 mg/dL (5-40)
[2018-11-29 13:01] LABS: Vitamin D,25 Hydroxy 16.3 ng/mL (29.95-100.01)
== END ==
PROVIDERS: Family Provider Family Medicine; PCP Family Medicine; Referring Provider Family Medicine; Visit Provider Family Medicine
DX: Z00.00 Encounter for general adult medical examination without abnormal findings (principal); E55.9 Vitamin D deficiency, unspecified
CPT/HCPCS: 36415; 80048; 80061; 82306

== ENCOUNTER → 2018-12-03 18:06 | Outpatient (CLI) | payer MEDICAID, SELFPAY ==
[2018-07-05 10:49] VITALS: BMI 27.1
[2018-12-25 15:41] LABS: HPV Reflexed? NOT INDICATED
== END ==
PROVIDERS: Family Provider Family Medicine; PCP Family Medicine; Referring Provider Nurse Practitioner Adult Health; Visit Provider Nurse Practitioner Adult Health
DX: Z12.4 Encounter for screening for malignant neoplasm of cervix (principal); Z78.0 Asymptomatic menopausal state
CPT/HCPCS: 88175; G0145

== ENCOUNTER → 2019-01-02 14:25 | Outpatient (CLI) | payer MEDICAID, SELFPAY ==
[2018-07-05 10:49] VITALS: BMI 27.1
--- NOTE | 2019-01-02 14:29 | BI_ITS ---
MAMMOGRAPHY - BILATERAL SCREENING REASON FOR EXAM: Female, 53 years old. Routine annual screening examination. PERTINENT HISTORY: Non-contributory. TECHNIQUE: Digital bilateral breast narayan (3D mammographic acquisition) in the CC and MLO projections. 2-D mediolateral oblique (MLO) and craniocaudad (CC) views of both breasts were obtained. CAD: Full Field Digital Mammography with Computer Added Detection was performed. COMPARISON: Comparison is made with prior study October 19, 2017. FINDINGS: Breast Composition: The breasts are heterogeneously dense, which may obscure small masses. There are no dominant masses or suspicious calcifications. No other significant abnormalities are identified. There has been no significant change since the prior study. BI/SCREEN MAMM (CAD) W/NARAYAN BILAT IMPRESSION: Stable bilateral screening mammogram. Yearly follow-up mammogram recommended. (A) ASSESSMENT CATEGORY: BIRADS Category 1: Negative. A letter regarding these results will be sent to the patient by the facility within 30 days. Approximately 10% of breast cancers are not detected by mammography. A normal mammogram should not delay biopsy of a clinically suspicious abnormality. [id number] Electronically Signed: Hadley Munroe, at 15:43 EDT , Service support ,
== END ==
PROVIDERS: Family Provider Family Medicine; PCP Family Medicine; Referring Provider Family Medicine; Visit Provider Family Medicine
DX: Z12.31 Encounter for screening mammogram for malignant neoplasm of breast (principal)
CPT/HCPCS: 77063; 77067

== ENCOUNTER 2022-02-26 09:19 | Emergency (ER) | payer OTHER, MEDICAID, SELFPAY ==
[2022-02-26 09:19] VITALS: BP 127/80; PULSE 106; RESP 18; TEMP 35.9; O2SAT 93; BMI 28.5
--- NOTE | 2022-02-26 09:45 | RAD_ITS ---
STUDY: X-RAY CHEST REASON FOR EXAM: Female, 56 years old. Cough TECHNIQUE: Single AP portable view of the chest. COMPARISON: 06/30/2017 FINDINGS: The lungs are clear and expanded. There is no demonstrated pleural abnormality. Normal size heart. Normal mediastinum and janice. Normal visualized pulmonary arteries. Normal visualized aortic arch and descending thoracic aorta. Normal visualized thoracic spine. Normal visualized ribs, clavicles, and shoulders. There is no demonstrated abnormality of the visualized soft tissue structures of the upper abdomen. RAD/Chest 1 View (Portable) IMPRESSION: Normal x-ray examination of the chest. Electronically Signed: James Zambrano MD at 9:57 EST ,
[2022-02-26 09:56] VITALS: TEMP 37.3
--- NOTE | 2022-02-26 09:59 | EDS_ITS ---
HPI History of Present Illness Chief Complaint: Cold Sx Informant: patient and parent Narrative Narrative: Patient presents with cough myalgias that started 6 days ago. She states she had chills and fever at first. She then developed myalgias. On Monday she developed a cough but no sputum production. She has been having wheezing. She has used an inhaler before when she was diagnosed with bronchitis. However she has no history of asthma. She has not smoked for many many years. Patient also has a lot of myalgias. She has some headache. She has not had a flu shot this year. She has had nausea but no vomiting. She is able to eat and drink. She had diarrhea about a week ago for a day but that was the only time. No abdominal pains. No urinary symptoms. [facility] Medical History (Updated 02/26/22 @ 12:[address] Aneesh Palomino MD) Gout History of malignant melanoma Kidney stone Home Medications albuterol sulfate 90 mcg/actuation aerosol inhaler (Ventolin HFA) 2 puff inhalation Q4H PRN PRN Wheezing ##1 02/26/22 [Rx Last Taken Unknown] Allergy/AdvReac Type Severity Reaction Status Date / Time amoxicillin trihydrate Allergy Hives Verified 02/26/22 09:22 [From Augmentin] latex Allergy Anaphylaxis Verified 02/26/22 09:22 potassium clavulanate Allergy Hives Verified 02/26/22 09:22 [From Augmentin] aspirin [ASA] AdvReac Other Verified 02/26/22 09:22 PLASTIC Allergy Rash Uncoded 02/26/22 09:22 Surgical History History of cholecystectomy History of shoulder surgery Social History Smoking Status: Former smoker ROS ROS ED Constitutional Constitutional ED: Reports chills, fever(s), subjective and sweats Eyes Eyes: Denies change in vision ENT ENT ED: Reports rhinorrhea; Denies ear pain or sore throat Cardiovascular Cardiovascular: Denies chest pain or palpitations Respiratory/Chest Respiratory/Chest: Reports cough and dyspnea; Denies sputum Gastrointestinal Gastrointestinal: Reports nausea; Denies abdominal pain, diarrhea or vomiting Genitourinary Genitourinary ED: Denies dysuria Musculoskeletal Musculoskeletal: Reports myalgias Integumentary Denies rash Neurologic Neurologic: Reports headache(s); Denies paresthesias or weakness Endocrine Endocrinology: Denies polydipsia or polyuria Hematologic/Lymphatic Hematologic/Lymphatic: Denies easy bleeding or easy bruising Allergic/Immunologic Allergic/Immunologic ED: Denies urticaria EXAM Physical Exam Const Vital Signs: 02/26/22 09:19 02/26/22 09:52 02/26/22 09:56 Temperature 96.7 F L 99.2 F H Temperature Source Temporal Oral Pulse Rate 106 H Respiratory Rate 18 Respiratory Effort Normal Non-Labored Respiratory Depth Deep Respiratory Pattern Normal Blood Pressure 127/80 H Blood Pressure Mean 95 Pulse Ox 93 Oxygen Delivery Method Room Air 02/26/22 10:09 02/26/22 10:09 Temperature Temperature Source Pulse Rate 98 Respiratory Rate 20 H Respiratory Effort Respiratory Depth Respiratory Pattern Blood Pressure Blood Pressure Mean Pulse Ox 94 Oxygen Delivery Method Room Air Positive well nourished General Appearance ED: NAD; Negative for cyanotic or diaphoretic HEENT Reports moist mucous membranes; Denies dry mucous membranes Mouth ED: No dry mucous membranes Mouth: No dry mucous membranes Eyes General Eye ED: Negative for pale conjunctiva or scleral icterus Neck no lymphadenopathy, supple and no JVD Resp normal respiratory effort Auscultation: wheezes; Negative for rales or rhonchi Cardio regular rate and regular rhythm Rate: Negative for tachycardic GI normal to inspection, nondistended, normoactive bowel sounds and non-tender Back/Spine no CVA tenderness Extremity normal to inspection General Extremety ED: Negative for edema or tenderness General Extremity: Negative for edema Neuro Sensorium / Orientation: alert Psych mental status grossly normal Skin no rashes or lesions noted MDM MDM MDM Narrative Medical decision making narrative: Chest x-ray showed no acute process. She is positive for influenza A. Patient was checked. She actually feels better after the DuoNeb. She states at first it did not seem to help a lot but after about 30 minutes or so it did help the breathing. She would like to go home. We discussed the overall outcome and expected course. I discussed Tamiflu but I do not think she is a good candidate because were not really sure completely sure when her symptoms started but they have likely been going on too long to give any benefit. We discussed reasons to return. Since she did get benefit with the inhaler, I will write for 1 to go. Lab Data Attestation: I reviewed the patient's lab results. Radiography Diagnostic Testing: Clinical Impression(s) from Imaging Studies Chest X-Ray 02/26/22 09:45 IMPRESSION: Normal x-ray examination of the chest. Electronically Signed: James Zambrano MD at 9:57 EST , X-ray looked at by me and read by radiology shows no acute process Discharge Plan Triage Chief Complaint: Cold Sx ED Provider: Aneesh Palomino Dx/Rx/DC Orders Clinical Impression: Influenza A, Acute bronchospasm Instructions: ED Bronchospasm (Adult), ED Influenza (Adult) Prescriptions: New albuterol sulfate [Ventolin HFA] 90 mcg/actuation HFA aerosol inhaler 2 puff inhalation Q4H PRN PRN (Reason: Wheezing) Qty: 1 0RF Primary Care Provider: Willis Orozco Referrals: Willis Orozco MD [Primary Care Provider] - 3-5 Days if not improving Disposition Disposition: Home, Self Care
[2022-02-26] MEDS: Ipratropium/Albuterol Sulfate 3 ML AMPUL.NEB INHALATION (10:07)
[2022-02-26 10:09] VITALS: PULSE 98; RESP 20; O2SAT 94
== END 2022-02-26 12:41 | disposition home or self-care (01) ==
PROVIDERS: Emergency Provider Emergency Medicine; PCP Family Medicine; Visit Provider Emergency Medicine
DX: J10.1 Influenza due to other identified influenza virus with other respiratory manifestations (principal); J98.01 Acute bronchospasm; R11.0 Nausea; M79.10 Myalgia, unspecified site; R51.9 Headache, unspecified; Z87.891 Personal history of nicotine dependence
CPT/HCPCS: 71045; 87428; 94640; 99282

== ENCOUNTER 2022-09-06 06:51 | Emergency (ER) | payer OTHER, MEDICAID, SELFPAY ==
[2022-09-06 06:51] VITALS: BP 155/78; PULSE 75; RESP 15; TEMP 36.6; O2SAT 98; BMI 30.7
--- NOTE | 2022-09-06 07:20 | RAD_ITS ---
STUDY: X-RAY CHEST REASON FOR EXAM: Female, 57 years old. Substernal chest pain TECHNIQUE: Single AP portable view of the chest. COMPARISON: 02/26/2022 FINDINGS: EKG leads overlie the chest The lungs are clear and expanded. There is no demonstrated pleural abnormality. Normal size heart. Normal mediastinum and janice. Normal visualized pulmonary arteries. Normal visualized aortic arch and descending thoracic aorta. Normal visualized thoracic spine. Normal visualized ribs, clavicles, and shoulders. There is no demonstrated abnormality of the visualized soft tissue structures of the upper abdomen. RAD/Chest 1 View (Portable) IMPRESSION: Normal x-ray examination of the chest. Electronically Signed: Scooby Carrillo MD at 8:11 EDT ,
--- NOTE | 2022-09-06 07:20 | EDS_ITS ---
HPI History of Present Illness Chief Complaint: Chest Pain Narrative Narrative: 57-year-old female with chest pressure. She states it started on after she had a subjective fever which made her feel like she was having chills and sweats. She states she slept through the night and took Tylenol and ibuprofen in the next day never had a fever again. She had a chest pressure since then. It starts in the central chest radiates up into her neck through the back of her head and makes her eyes bloodshot. States she had a telemetry visit yesterday and they told her to hang up and go straight to the emergency room but she did not. She decided to go out to eat with family. This morning when she woke up the pressure was still there so she came to the emergency room to be evaluated. No history of cardiac disease. She states previously she was told she had a elevated cholesterol but then she states that they told her that was an error and she is not on any cholesterol meds. She states she was prediabetic but has been controlling this with diet. She does not have a cough. She is not short of breath. [facility] Medical History Gout History of malignant melanoma Kidney stone Home Medications albuterol sulfate 90 mcg/actuation aerosol inhaler (Ventolin HFA) 2 puff inhalation Q4H PRN PRN Wheezing ##1 02/26/22 [Rx Last Taken Unknown] Allergy/AdvReac Type Severity Reaction Status Date / Time amoxicillin trihydrate Allergy Hives Verified 09/06/22 06:56 [From Augmentin] Environmental Allergies: Allergy Rash Verified 09/06/22 06:56 Uncoded latex Allergy Anaphylaxis Verified 09/06/22 06:56 potassium clavulanate Allergy Hives Verified 09/06/22 06:56 [From Augmentin] aspirin [ASA] AdvReac Rash Verified 09/06/22 06:57 Surgical History History of cholecystectomy History of shoulder surgery Social History Smoking Status: Former smoker ROS ROS ED Constitutional Constitutional ED: Denies chills, fever(s) or sweats Eyes Eyes: Denies blurry vision or change in vision ENT ENT ED: Denies ear pain or sore throat Cardiovascular Cardiovascular: Reports chest pain; Denies palpitations or racing heartbeat Respiratory/Chest Respiratory/Chest: Denies cough, dyspnea or sputum Gastrointestinal Gastrointestinal: Reports nausea; Denies abdominal pain, constipation, diarrhea or vomiting Genitourinary Genitourinary ED: Denies dysuria, hematuria or urinary frequency Musculoskeletal Musculoskeletal: Denies arthralgias, myalgias or neck pain Integumentary Denies abscess, Abrasions or rash Neurologic Neurologic: Denies headache(s), paresthesias or weakness Psychiatric Psychiatric: Denies anxiety, depression, suicidal ideation or suicidal thoughts Endocrine Endocrinology: Denies polydipsia or polyuria EXAM Physical Exam Const Vital Signs: 09/06/22 06:51 09/06/22 06:58 09/06/22 07:25 Temperature 97.8 F Temperature Source Temporal Pulse Rate 75 Respiratory Rate 15 Respiratory Effort Normal Non-Labored Blood Pressure 155/78 H Blood Pressure Mean 103 Pulse Ox 98 Oxygen Delivery Method Room Air Room Air 09/06/22 07:51 Temperature Temperature Source Pulse Rate 75 Respiratory Rate 9 L Respiratory Effort Blood Pressure 155/78 H Blood Pressure Mean 103 Pulse Ox 95 Oxygen Delivery Method Room Air Positive well nourished General Appearance ED: NAD; Negative for pallor HEENT Reports TM's clear and moist mucous membranes Tympanic Membrane ED: Yes TM's clear Eyes PERRL and EOMs intact bilaterally Chest Wall inspection of chest normal and palpation of chest normal Resp normal respiratory effort and clear to auscultation bilaterally Effort and Inspection: Negative for respiratory distress Auscultation: Negative for rales, rhonchi or wheezes Cardio regular rate and regular rhythm GI normal to inspection, nondistended, normoactive bowel sounds Extremity normal to inspection General Extremety ED: Negative for edema or pulses abnormal General Extremity: Negative for edema or pulses abnormal Neuro oriented x3 and CN's II-XII intact bilaterally Sensorium / Orientation: awake and alert Motor Exam: strength 5/5 throughout Psych mental status grossly normal Skin no rashes or lesions noted General Skin Exam: Negative for jaundice or pallor Heart Score History: Slightly/Non-Suspicious ECG: Normal Age: </= 45 years Risk Factors: 1 or 2 Risk Factors Troponin: </= Normal Limit Score: 1 MDM MDM MDM Narrative Medical decision making narrative: 57-year-old female presenting with chest pressure which radiates up into her neck and to the back of her head and causes her eyes to be bloodshot. No lightheadedness or dizziness. No cough or shortness of breath. This has been ongoing since Monday which is 5 days. She states it started with a fever that is gone away. Differential includes but is not limited to ACS, PE, pneumonia, pneumothorax, muscle strain, costochondritis, hiatal hernia, anxiety. CBC to as sess white blood cell count, hemoglobin, platelets, differential. BMP to assess renal function, electrolytes, glucose, anion gap. High-sensitivity troponin will be obtained as well as an EKG to assess for ischemic changes. Chest x-ray to rule out pneumonia. CBC shows a normal white blood cell count of 6.8. Hemoglobin hematocrit stable. Platelets normal. Renal function electrolytes unremarkable. High-sensitivity troponin is 5 chest pain for 5 days I do not think she needs a repeat troponin. EKG on my interpretation shows a normal sinus rhythm with a ventricular rate of 75 bpm without sign of ischemic change. There is 1 PVC noted. At this point her work-up is ultimately negative. Discussed with her follow-up with her primary care physician. Impression: 1. Chest pain Lab Data Attestation: I reviewed the patient's lab results. Labs: Laboratory Results - last 24 hr 09/06/22 09/06/22 07:09 07:09 WBC 6.8 RBC 4.43 Hgb 13.2 Hct 39.3 MCV 88.7 MCH 29.8 MCHC 33.6 RDW Std Deviation 40.7 RDW Coeff of Ana M 12.5 Plt Count 226 MPV 10.3 Immature Gran % (Auto) 0.400 Neut % (Auto) 52.9 Lymph % (Auto) 33.2 [place] % (Auto) 8.4 Eos % (Auto) 4.4 Baso % (Auto) 0.7 Absolute Neuts (auto) 3.6 Absolute Lymphs (auto) 2.24 Nucleated RBC % 0 Sodium 141 Potassium 4.6 Chloride 109 H Carbon Dioxide 26.0 Anion Gap 6 BUN 20 H Creatinine 0.74 Estim Creat Clear Calc 64.74 Est GFR (MDRD) Af Amer 102 Est GFR (MDRD) Non-Af 85 BUN/Creatinine Ratio 26.8 H Glucose 103 Calcium 9.4 Troponin I High Sens 5 Radiography Diagnostic Testing: Clinical Impression(s) from Imaging Studies Chest X-Ray 09/06/22 07:20 IMPRESSION: Normal x-ray examination of the chest. Electronically Signed: Scooby Carrillo MD at 8:11 EDT , Discharge Plan Triage Chief Complaint: Chest Pain ED Provider: Wyatt Jon Dx/Rx/DC Orders Instructions: ED Chest Pain, Noncardiac Prescriptions: No Action albuterol sulfate [Ventolin HFA] 90 mcg/actuation HFA aerosol inhaler 2 puff inhalation Q4H PRN PRN (Reason: Wheezing) Qty: 1 0RF Primary Care Provider: Willis Orozco Referrals: Willis Orozco MD [Primary Care Provider] - Disposition Disposition: Home, Self Care
[2022-09-06 07:35] LABS: Absolute Lymphocyte Count 2.24 X10^3/uL (0.83-4.51); Absolute Neutrophil Count 3.6 X10^3/uL (2.0-7.7); Basophil# 0.05 X10^3/uL; Basophil% 0.7 % (0-1); Eosinophils% 4.4 % (0-5); Hematocrit 39.3 % (37-47); Hemoglobin 13.2 g/dL (12.0-15.0); Lymphocyte # 2.24 X10^3/ul (0.83-4.51); Lymphocyte % 33.2 % (19-41); Mean Corp Hgb Conc 33.6 g/dL (32-36); Mean Corpuscular Hgb 29.8 pg (27.0-32.0); Mean Corpuscular Volume 88.7 fL (81-99); Mean Platelet Vol. 10.3 fl (6.2-12.0); Monocyte# 0.57 X10^3/uL; Monocyte% 8.4 % (0-10); NRBC Flagged by Analyzer 0 % (0-5); Neutrophil # 3.56 X10^3/uL (2.7-7.7); Neutrophil % 52.9 % (47-70); Platelet Count 226 K/mm3 (150-450); RBC Distribution Width CV 12.5 % (11.6-14.6); RBC Distribution Width SD 40.7 fl (35.1-43.9); Red Blood Count 4.43 M/mm3 (4.2-5.4); White Blood Count 6.8 K/mm3 (4.4-11.0)
[2022-09-06 07:47] LABS: Anion Gap 6 (5-15); BUN 20 mg/dL (7-18); BUN/Creat Ratio 26.8 RATIO (10-20); Calcium,Total 9.4 mg/dL (8.5-10.1); Chloride 109 mmol/L (98-107); Creatinine, Serum 0.74 mg/dL (0.55-1.02); EST Glomerular Filtration Rate 85 mL/min (>60); Est Glom Filt Rate - Afr Amer 102 mL/min (>60); Estimated Creatinine Clearance 64.74 ml/min; Glucose 103 mg/dL (74-106); Potassium 4.6 mmol/L (3.5-5.1); Sodium Level 141 mmol/L (136-145); Troponin-I HS 5 pg/mL (3.0-54.0)
[2022-09-06 07:51] VITALS: BP 155/78; PULSE 75; RESP 9; O2SAT 95
[2022-09-06 09:19] VITALS: BP 124/77; PULSE 68; RESP 15; O2SAT 97
== END 2022-09-06 09:22 | disposition home or self-care (01) ==
PROVIDERS: Emergency Provider Student in an Organized Health Care Education/Training Program; PCP Family Medicine; Visit Provider Student in an Organized Health Care Education/Training Program
DX: R07.9 Chest pain, unspecified (principal); Z87.891 Personal history of nicotine dependence
CPT/HCPCS: 71045; 80048; 84484; 85025; 93005; 99284; A4216

== ENCOUNTER → 2022-12-14 | Outpatient (CLI) | payer OTHER, SELFPAY ==
[2022-12-14 13:00] LABS: Vitamin D,25 Hydroxy 24.7 ng/mL
[2022-12-14 13:16] LABS: Anion Gap 3 (5-15); BUN 12 mg/dL (7-18); BUN/Creat Ratio 15.1 RATIO (10-20); Chloride 108 mmol/L (98-107); Cholesterol 276 mg/dL (200); EST Glomerular Filtration Rate 78 mL/min (>60); Est Glom Filt Rate - Afr Amer 95 mL/min (>60); Glucose 120 mg/dL (74-106); High Density Lipoprotein 43 mg/dL; Sodium Level 138 mmol/L (136-145); Triglycerides 336 mg/dL; Very Low Density Lipoprotein 67 mg/dL (5-40)
== END | disposition home or self-care (01) ==
LOC: MFPLAB 10:06
PROVIDERS: PCP Family Medicine; Visit Provider Family Medicine
DX: Z00.00 Encounter for general adult medical examination without abnormal findings (principal)
CPT/HCPCS: 36415; 80048; 80061; 82306

== ENCOUNTER → 2022-12-23 | Outpatient (CLI) | payer OTHER, SELFPAY ==
--- NOTE | 2022-12-23 08:00 | LES_PTH ---
PATIENT: BALJIT DIETZ LOC: [facility] U#:[id number] AGE/SX: 57/F ROOM: RE12/23/[address]: Dr. Willis Orozco MD : 1965 BED: DIS: 12/23/2022 SPEC #: [id number] RECD: 12/23/22 10:07 STATUS: CHRIS ROSENDO #: [id number] SAUD: 12/23/22 08:[address]: Willis Orozco DEPT: SURGICAL PATHOLOGY RECD BY: Hannah Webster Tissues: Skin of neck, NOS Procedures: Surgery Specimen Level IV HEADER OPERATION: Shave biopsy neoplasm right neck 1.0 cm PRE-OP DIAGNOSIS: Neoplasm TISSUE SUBMITTED: Right neck MICROSCOPIC DIAGNOSIS Skin lesion of right neck, shave biopsy: Seborrheic keratosis. AM:sergio 12/26/2022 MICROSCOPIC DESCRIPTION Slides are reviewed. GROSS DESCRIPTION Received is one container labeled with the patient's name and not further designated. The specimen consists of a light mccarty shave biopsy of skin measuring 0.9 x 0.8 x 0.2 cm. The specimen is inked, serially sectioned and totally submitted in one cassette. / AM:sergio 12/23/2022 TC:5 CPT: 38900
== END | disposition home or self-care (01) ==
LOC: LAB 10:32
PROVIDERS: PCP Family Medicine; Referring Provider Family Medicine; Visit Provider Family Medicine
DX: L82.1 Other seborrheic keratosis (principal)
CPT/HCPCS: 88305

== ENCOUNTER → 2023-01-11 | Outpatient (CLI) | payer OTHER, SELFPAY ==
[2023-01-16 08:07] LABS: HPV APTIMA, High Risk Negative (Negative)
[2023-01-16 20:08] LABS: HPV Reflexed? YES, CHARGE PATIENT
== END | disposition home or self-care (01) ==
LOC: LABSPEC 10:34
PROVIDERS: PCP Family Medicine; Visit Provider Nurse Practitioner Family
DX: Z01.419 Encounter for gynecological examination (general) (routine) without abnormal findings (principal)
CPT/HCPCS: 87624; 88175; G0145

== ENCOUNTER → 2023-01-17 | Outpatient (CLI) | payer OTHER, SELFPAY ==
--- NOTE | 2023-01-17 10:07 | BD_ITS ---
STUDY: DUAL ENERGY X-RAY ABSORPTIOMETRY / DXA REASON FOR EXAM: Female, 57 years old. [id number] TECHNIQUE: Bone Mineral Density (BMD) measurements of lumbar spine and bilateral hips were obtained. COMPARISON: Comparison is made with prior study dated November 16, 2017. FINDINGS: Lumbar Spine (L1-L4): g/cm2 (0.968) / T-score (-1.2) / Z-score (0.3) Findings are suggestive of osteopenia with a low fracture risk. Left Femur Total: g/cm2 (0.844) / T-score (-0.8) / Z-score (0.1) Left Femoral Neck: g/cm2 (0.681) / T-score (-1.5) / Z-score (-0.2) Right Femur Total: g/cm2 (0.862) / T-score (-0.7) / Z-score (0.3) Right Femoral Neck: g/cm2 (0.688) / T-score (-1.5) / Z-score (-0.2) The T-Scores on the most recent prior examination were: Lumbar Spine (L1-L4): There has been worsening of bone density since the previous examination. Left Femur Total: which represents an improvement of 0.8%. Right Femur Total: which represents an improvement of 4%. BD/Dexa Bone Density Study IMPRESSION: The patient is considered osteopenic as outlined below according to World [place] Organization (WHO) criteria with a low fracture risk. There has been improvement of bone density since the previous examination. Reference Information: The T-score is the number of standard deviations above or below the standard which is normal for young adults at their peak bone mineral density. The World Health Organization (WHO) interprets the T-scores as follows: Above -1 Normal bone density Between -1 and -2.5 Osteopenia Equal to / or below -2.5 Osteoporosis As a practical clinical guideline, osteopenia may be graded as follows: Mild -1 through -1.5 Moderate -1.6 through -2.0 Severe -2.1 through -2.4 The Z-score is the number of standard deviations above or below age-matched controls. A Z-score of less than -1.5 would be considered abnormal. References: 1. NIH Osteoporosis and Related Bone Diseases www osteo.org 2. International Society for Clinical Densitometry www iscd.org 3. National Osteoporosis Foundation www nof.org Electronically Signed: Hadley Munroe MD at 9:43 EDT ,
--- NOTE | 2023-01-17 10:07 | BI_ITS ---
MAMMOGRAPHY - BILATERAL SCREENING REASON FOR EXAM: Female, 57 years old. Routine annual screening examination. PERTINENT HISTORY: Non-contributory. TECHNIQUE: Digital bilateral breast narayan (3D mammographic acquisition) in the CC and MLO projections. 2-D mediolateral oblique (MLO) and craniocaudad (CC) views of both breasts were obtained. CAD: Full Field Digital Mammography with Computer Added Detection was performed. COMPARISON: Comparison is made with prior study January 02, 2019 and October 19, 2017. FINDINGS: Breast Composition: The breasts are heterogeneously dense, which may obscure small masses. There are no dominant masses or suspicious calcifications. No other significant abnormalities are identified. There has been no significant change since the prior study. BI/SCRN MAMM (CAD)W/NARAYAN BILAT IMPRESSION: Stable bilateral screening mammogram. Yearly follow-up mammogram recommended. (A) ASSESSMENT CATEGORY: BIRADS Category 1: Negative. A letter regarding these results will be sent to the patient by the facility within 30 days. Approximately 10% of breast cancers are not detected by mammography. A normal mammogram should not delay biopsy of a clinically suspicious abnormality. [id number] Electronically Signed: Hadley Munroe MD at 10:51 EDT ,
== END | disposition home or self-care (01) ==
LOC: OPBD 09:40
PROVIDERS: PCP Family Medicine; Referring Provider Family Medicine; Visit Provider Family Medicine
DX: Z13.820 Encounter for screening for osteoporosis (principal); Z78.0 Asymptomatic menopausal state; Z12.31 Encounter for screening mammogram for malignant neoplasm of breast
CPT/HCPCS: 77063; 77067; 77080